=== PATIENT | female | born 1985 | race Two or more races ===

== ENCOUNTER 2024-03-19 05:10 | Inpatient (IN) ==
[2024-03-19] MEDS ORDERED: Glycerin ADULT 2.4 gm SUPP PR PRN (07:51)
[2024-03-19] MEDS ORDERED: Polyethylene Glycol 3350 17 GM PACKET PO PRN (07:51)
[2024-03-19] MEDS ORDERED: Lidocaine 1% VIAL 10 MG/ML 30 ML VIAL INJ PRN (07:52)
[2024-03-19] MEDS: Witch Hazel PAD JAR TOPICAL PRN (09:24)
[2024-03-19] MEDS: Dibucaine 1% OINT 28.35 GM TUBE PR PRN (09:24)
[2024-03-19] MEDS: Methylergonovine 0.2 mg AMPULE 1 ml AMP IM ONE (13:29)
[2024-03-19] MEDS: Oxytocin 10 UNITS/ML 1 ML VIAL IM ONE (13:30)
[2024-03-19 18:19] LABS: Urine Benzodiazepine Screen None Detected (None Detect); Urine Cannabinoids Screen None Detected (None Detect); Urine Opiates Screen None Detected (None Detect)
[2024-03-20 06:46] LABS: ABS Lymphocytes 1.9 10^3/uL (1.0-4.8); ABS Monocytes 0.4 10^3/uL (0.0-0.9); ABS Neutrophils 5.8 10^3/uL (1.5-7.6); Eosinophil % 0.2 %; Hematocrit 36.1 % (35-45); Hemoglobin 12.2 g/dL (11.5-14.3); Lymphocyte % 23.5 %; Mean Corpuscular Hemoglobin 29.1 pg (27-33); Mean Corpuscular Hgb Conc 33.9 g/dL (31-36); Mean Corpuscular Volume 85.8 fL (80-97); Mean Platelet Volume 9.6 fL (7.5-11.2); Platelet Count 188 10^3/uL (150-450); Red Blood Count 4.21 10^6/uL (3.63-4.92); Red Cell Distribution Width 15.8 % (12-17); White Blood Count 8.2 10^3/uL (3.8-11.8)
[2024-03-20 08:02] LABS: Albumin 3.4 g/dL (3.5-5.7); Albumin/Globulin Ratio 1.3 (1-3); Calcium 9.1 mg/dL (8.6-10.3); Creatinine, Serum 0.73 mg/dL (0.51-0.95); Globulin 2.7 g/dL (2-4); Potassium 4.3 mmol/L (3.5-5.0); Total Bilirubin 0.7 mg/dL (0.2-1.0); Total Protein 6.1 g/dL (6.4-8.9); eGFR CKD-EPI 109.2 (>60)
[2024-03-20 08:11] VITALS: BP 122/80
== END 2024-03-20 14:25 | disposition home or self-care (01) | DRG 807 ==
LOC: MCHOBOUT 05:10 → MCHOB 05:35